=== PATIENT | male | born 1950 | race Caucasian/White ===

== ENCOUNTER 2018-09-21 14:01 | Emergency (ER) | payer MEDICARE, OTHER, SELFPAY ==
[2018-09-21 14:05] VITALS: BP 148/74; PULSE 90; RESP 16; TEMP 36.3; O2SAT 95; BMI 25.7
--- NOTE | 2018-09-21 14:08 | DI.RAD.S_ITS ---
PROCEDURE: XR HIP W PEL IF DONE RT 2V INDICATIONS: injury pain TECHNIQUE: 2 views of the hip were acquired. COMPARISON: None. FINDINGS: Bones: No fractures or dislocations. No suspicious bony lesions. The visualized pelvic ring appears intact. Mild degenerative changes of the hips are present. There are moderate degenerative changes of the lumbosacral spine and pubis symphysis. Soft tissues: No suspicious soft tissue calcifications or masses. Postoperative changes within the right inguinal region suggest prior hernia repair. IMPRESSION: Mild degenerative changes of the right hip. No fractures. Dictated by: Edmund Granger M.D. on 09/21/2018 at 14:05 Approved by: Edmund Granger M.D. on 09/21/2018 at 14:05
--- NOTE | 2018-09-21 15:52 | ED.LOWEXIN ---
HPI - Extremity Injury (Lower) <Corazon Yoon PA-C - Last Filed: 09/21/18 21:26> General Chief Complaint: Extremity Injury, Lower Stated Complaint: RIGHT HIP FALL Time Seen by Provider: 09/21/18 16:00 Source: patient Mode of arrival: wheelchair Limitations: no limitations History of Present Illness HPI Narrative: this 68-year-old gentleman was downhill skiing earlier when he slipped on a patch of ice and fell hard onto his left hip. He states that main impact was on the side of his hip. He does not know exactly what direction his legs went when he fell, but he thought he heard a cracking sensation. He states that he was able to get up and ski to the chair lift. He states that he went up 1 more run, but had to climb up from cat track and was unable to climb up at all due to pain. He states that it is painful to bear weight or lift his leg. Not having pain at rest. he denies any other injury, any head contusion or LOC. Not having any pain in his knee or ankle. Related Data Home Medications Medication Instructions Recorded Confirmed hydrochlorothiazide 25 mg PO DAILY 09/21/18 lisinopril 10 mg PO DAILY 09/21/18 09/21/18 Previous Rx's Medication Instructions Recorded cyclobenzaprine 10 mg PO Q8H PRN #14 tab 09/21/18 meloxicam [Mobic] 15 mg PO DAILY #10 tab 09/21/18 Allergies Allergy/AdvReac Type Severity Reaction Status Date / Time No Known Drug Allergies Allergy Verified 09/21/18 14:05 Review of Systems <Corazon Yoon PA-C - Last Filed: 09/21/18 21:26> Review of Systems ROS Unobtainable: All systems reviewed & are unremarkable except as noted in HPI and below Exam <HERB Alexandre Last Filed: 09/21/18 21:26> Narrative Exam Narrative: GENERAL APPEARANCE: Patient sitting comfortably, in no distress. LUNGS: Clear to auscultation bilaterally. HEART: Rate and rhythm regular without murmur, normal S1 and S2, no S3 or S4. MUSCULOSKELETAL: Right hip there is no effusion. Tender to palpation over the lateral bony prominences. No tenderness elsewhere over the hip. No tenderness over the lumbosacral spine, femur, or right knee distal. Full range of motion of the knee, foot and ankle without tenderness. Unable to flex the hip actively secondary to tenderness. When up on crutches, he is able to flex and extend the left hip to about 50? with some tenderness. Full passive range of motion without tenderness NEUROVASCULAR: Ft are warm and pink with pedal pulses intact. Sensation grossly intact Initial Vital Signs Initial Vital Signs: Vital Signs Temperature 97.3 F L 09/21/18 14:05 Pulse Rate 90 09/21/18 14:05 Respiratory Rate 16 09/21/18 14:05 Blood Pressure 148/74 H 09/21/18 14:05 Pulse Oximetry 95 09/21/18 14:05 <DO Blake Ortiz Last Filed: 09/22/18 08:26> Initial Vital Signs Initial Vital Signs: Vital Signs Temperature 97.3 F L 09/21/18 14:05 Pulse Rate 90 09/21/18 14:05 Respiratory Rate 16 09/21/18 14:05 Blood Pressure 148/74 H 09/21/18 14:05 Pulse Oximetry 95 09/21/18 14:05 Course <Corazon Yoon PA-C - Last Filed: 09/21/18 21:26> Orders Ordered: Discontinued Medications Ibuprofen (Advil) 800 mg PO NOW ONE Stop: 09/21/18 16:25 Last Admin: 09/21/18 16:28 Dose: 800 mg Vital Signs - 8 hr 09/21/18 14:05 09/21/18 17:51 Temperature 97.3 F L Pulse Rate 90 94 H Respiratory Rate 16 16 Blood Pressure 148/74 H 117/76 Pulse Oximetry 95 100 <DO Blake Ortiz Last Filed: 09/22/18 08:26> Orders Ordered: Discontinued Medications Ibuprofen (Advil) 800 mg PO NOW ONE Stop: 09/21/18 16:25 Last Admin: 09/21/18 16:28 Dose: 800 mg Vital Signs - 8 hr 09/21/18 14:05 09/21/18 17:51 Temperature 97.3 F L Pulse Rate 90 94 H Respiratory Rate 16 16 Blood Pressure 148/74 H 117/76 Pulse Oximetry 95 100 MDM - Extremity Injury (Lower) <HERB Alexandre Last Filed: 09/21/18 21:26> Imaging Data hip: Radiologist's impression: [address] [address] XRay Report Signed Patient: KELLY BATES#: [id number] : 9Acct:[id number] Age/Sex: 68 / MDate of Service: 09/21/18 Loc: ED Accession Number: [id number] Procedure: XR hip w pel if done RT 2V Ordering Provider: Inez Soria D.O. PROCEDURE: XR HIP W PEL IF DONE RT 2V INDICATIONS: injury pain TECHNIQUE: 2 views of the hip were acquired. COMPARISON: None. FINDINGS: Bones: No fractures or dislocations. No suspicious bony lesions. The visualized pelvic ring appears intact. Mild degenerative changes of the hips are present. There are moderate degenerative changes of the lumbosacral spine and pubis symphysis. Soft tissues: No suspicious soft tissue calcifications or masses. Postoperative changes within the right inguinal region suggest prior hernia repair. IMPRESSION: Mild degenerative changes of the right hip. No fractures. Dictated by: Edmund Granger M.D. on 09/21/2018 at 14:05 Approved by: Edmund Granger M.D. on 09/21/2018 at 14:05 Discharge Plan Departure Patient Disposition: Home Clinical Impression: Contusion of hip, right Discharge Date/Time: 09/21/18 17:40 Interventions: ED Discharge Assessment Last Done: 09/21/18 17:51 Instructions: DI for Hip Pain Activity Restrictions/Additional Instructions: Your x-ray today did not show any break in the hip. it did show some arthritis in the hip and lower back, which could be exacerbated by your fall. This is most likely a soft tissue injury to tendon or ligament, however occasionally fractures do not show on initial x-rays. Please use the crutches for now, and as you get better, you can put your toes down and start to bear a little bit of weight as you tolerate. Your x-rays should be repeated next week if you are not getting better, and you may need further imaging studies. Please take the prescription meloxicam 15 mg once daily to help with pain and inflammation ( do not take other NSAIDs ), and you can take 1/2 to 1 of the cyclobenzaprine ( muscle relaxant) as needed to help with tightness and pain. Remember that can make you sleepy. You can also add Tylenol as needed. Return here if you have any acutely worsening symptoms, or new symptoms such as weakness in the leg. Prescriptions: New cyclobenzaprine 10 mg tablet 10 mg PO Q8H PRN (Reason: muscle spasm/hip pain) Qty: 14 RF: 0 meloxicam [Mobic] 15 mg tablet 15 mg PO DAILY Qty: 10 RF: 0 No Action lisinopril 10 mg tablet 10 mg PO DAILY RF: 0 hydrochlorothiazide 25 mg tablet 25 mg PO DAILY RF: 0 Referrals: Gabi Dye [Other] <Inez Soria, - Last Filed: 09/22/18 08:26> Cosign ED Attending Narendraature Attestation: I was immediately available in the department for consultation. Documentation has been reviewed. I agree with assessment and plan.
[2018-09-21] MEDS: IBUPROFEN 400 MG TABLET 800 MG PO (16:28)
[2018-09-21 17:51] VITALS: BP 117/76; PULSE 94; RESP 16; O2SAT 100
== END 2018-09-21 17:40 | disposition home or self-care (01) ==
PROVIDERS: Emergency Provider Internal Medicine
DX: S70.01XA Contusion of right hip, initial encounter (principal); V00.321A Fall from snow-skis, initial encounter; Y93.23 Activity, snow (alpine) (downhill) skiing, snowboarding, sledding, tobogganing and snow tubing
CPT/HCPCS: 73502; 99282; 99283